=== PATIENT | female | born 1955 | race Caucasian/White ===

== ENCOUNTER → 2018-03-29 | Outpatient (CLI) | payer MEDICARE ==
[~2018-03-29] MED LIST: COUMADIN5 M2 PO; OMEPRAZOLE20 MG PO; OYSTER CALCIUM/1 TA1 PO; SIMVASTATIN40 MG PO; SUCRALFATE1 GM PO; VITAMIN D2000 IU PO
== END ==
LOC: MAMMO 14:22
DX: Z12.31 Encounter for screening mammogram for malignant neoplasm of breast (principal)

== ENCOUNTER → 2019-10-30 | Outpatient (CLI) | payer OTHER ==
[~2019-10-30] MED LIST changes: +CLARITIN10 MG PO; +ELIQUIS5 M1 PO; +FARXIGA5 M1 PO; +FISH OIL 1,0001 EAC2 PO; +GLUCOPHAGE500 M1 PO; +ZESTORETIC 10-1 EACH PO
== END | disposition home or self-care (01) ==
LOC: MAMMO 10-23 11:00
DX: Z12.31 Encounter for screening mammogram for malignant neoplasm of breast (principal)

== ENCOUNTER → 2020-01-11 | Outpatient (CLI) | payer OTHER ==
[~2020-01-11] VITALS: Ht 170.1 cm; Wt 97.5 kg
[~2020-01-11] MED LIST changes: +JARDIANCE10 MG PO
[2020-01-11 07:20] VITALS: BP 132/46
[2020-01-11 07:32] LABS: INTERNATIONAL NORM RATIO 0.9 (2.0-3.5)
--- NOTE | 2020-01-11 09:01 | NUR ---
0723- RAPID COVID TEST RESULTS ARE POSITIVE. FLACO MEJIA NOTIFIED AND SHE SPOKE TO DR. ANDRE. PT. TO BE SWABBED FOR COVID AND THE DISCHARGED TO HOME TO QUARANTINE FOR THREE DAYS. NASAL SWAB WAS PERFOMED BY KRIS ROBERTSON RN. PT. UP AND DRESSED. DISCHARGED AMBULATORY AND INSTRUCTED TO QUARANTINE FOR THE NEXT THREE DAYS.
== END | disposition home or self-care (01) ==
LOC: SDC 01-05 08:00 → EDSTATUS 08:00 → SDC 08:00 → LAB 12:00
PROVIDERS: Surgery
DX: Z53.9 Procedure and treatment not carried out, unspecified reason (principal); I10 Essential (primary) hypertension; E11.9 Type 2 diabetes mellitus without complications; K21.9 Gastro-esophageal reflux disease without esophagitis; Z83.3 Family history of diabetes mellitus; Z82.49 Family history of ischemic heart disease and other diseases of the circulatory system

== ENCOUNTER → 2020-11-04 | Outpatient (CLI) | payer OTHER | END | disposition home or self-care (01) | LOC: MAMMO 10-21 09:30 | PROVIDERS: ATTEND Physician Assistant | DX: Z12.31 Encounter for screening mammogram for malignant neoplasm of breast (principal) ==

== ENCOUNTER → 2021-11-05 | Outpatient (CLI) | payer OTHER | END | disposition home or self-care (01) | LOC: LAB 09:09 → MAMMO 09:09 | PROVIDERS: ATTEND Physician Assistant | DX: Z12.31 Encounter for screening mammogram for malignant neoplasm of breast (principal); Z80.3 Family history of malignant neoplasm of breast ==

== ENCOUNTER → 2023-01-19 | Outpatient (CLI) | payer OTHER | END | disposition home or self-care (01) | LOC: MAMMO 14:56 | PROVIDERS: ATTEND Family Medicine | DX: Z12.31 Encounter for screening mammogram for malignant neoplasm of breast (principal) ==